=== PATIENT | male | born 1985 | race Caucasian/White ===

== ENCOUNTER 2016-07-31 16:14 | Observation (INO) | payer SELFPAY ==
[~2016-07-31] VITALS: Ht 190.5 cm; Wt 82.0 kg
[2016-07-31 16:16] VITALS: BP 130/79; PULSE 100; RESP 20; TEMP 98; O2SAT 96
[2016-08-01 02:00] VITALS: BP 162/104; PULSE 84; RESP 20; TEMP 98.7; O2SAT 100
[2016-08-01] MEDS ORDERED: SODIUM CHLOR 0.9% 1000 ML INJ 1,000 ML IV SCH (02:19)
[2016-08-01] MEDS ORDERED: KETOROLAC TROMETHAMINE 30 MG/ML (IVP) VIAL IVP ONE (02:30)
[2016-08-01] MEDS ORDERED: SODIUM CHLORIDE 0.9% FLUSH 5 ML FLUSH IVF PRN ×2 (02:30)
[2016-08-01] MEDS ORDERED: ONDANSETRON HCL 4 MG/2 ML VIAL IM ONE (02:30)
--- NOTE | 2016-08-01 02:38 | PD ---
HPI Chief Complaint: Abdominal Pain Time Seen by Provider: 01:55 Travel History International Travel<30 days: No Contact w/Intl Traveler<30days: No Traveled to known affect area: No History of Present Illness HPI The patient is a 31 year old male who presents to the [facility] emergency department with a history of reportedly "not feeling right over the last 2 months, that is also worsened over the last few days." The patient reports that he's had intermittent left-sided abdominal pain and blood in his stool 3-4 times over the last few months. He reports that recently he is also had a tingling sensation in his head with this feeling of lightheadedness. The patient reports that today while in the bathroom he felt lightheaded and nearly passed out. The patient denies drinking any significant alcohol. He reports that he had been drinking approximately a 12 pack per day of that until 3-1/2-4 months ago. However now, when he drinks a half a beer to a beer he reportedly feels drunk immediately. He reports that he has a sensation that he is "losing track of time." He denies having a primary care physician. He reports that the last time he was seen by a physician was 10 years ago. The patient reports that he smokes one and a half packs of cigarettes per day. He denies using any drugs. The patient reports that he has been moving his bowels regularly. He denies having any rectal pain or swelling. The patient denies any recent fevers , cough, congestion, neck pain, chest pain, shortness of breath,, vomiting, diarrhea, urinary symptoms, or other neurologic symptoms. REPLACED BY [facility] Past Medical History Narrative Medical The patient's past medical history is significant for none. Past Surgical History Narrative Surgical The patient's past surgical history is significant for none. Social History Alcohol Use: Yes (occasional) Tobacco Use: Yes (1-1/2 packs per day) Substance Use: No Allergies-Medications (Allergen,Severity, Reaction): Coded Allergies: No Known Allergies (Unverified , 07/31/16) Reported Meds & Prescriptions Reported Meds & Active Scripts Active No Active Prescriptions or Reported Medications Narrative Medication The patient denies taking any medications. Review of Systems Except as stated in HPI: all other systems reviewed are Neg General / Constitutional: No: Fever Eyes: No: Visual changes HENT: No: Headaches Cardiovascular: Positive: Syncope, No: Chest Pain or Discomfort Respiratory: Positive: Cough, No: Shortness of Breath Gastrointestinal: Positive: Abdominal Pain, Hematochezia, No: Nausea, Vomiting , Diarrhea, Changes in Bowel Habits, Indigestion, Loss of Appetite Genitourinary: No: Dysuria Musculoskeletal: No: Pain Skin: No Rash Neurologic: No: Weakness Psychiatric: No: Depression Endocrine: No: Polydipsia Hematologic/Lymphatic: No: Easy Bruising Physical Exam Narrative General: The patient is a well-developed well-nourished male, slightly anxious appearing on examination, however in no acute distress. Head and Neck exam: Head is normocephalic atraumatic. Eyes: Pupils are equal round and reactive to light. Nose: Midline septum with pink mucous membranes Mouth: Dentition unremarkable. Moist mucus membranes. Posterior oropharynx is not erythematous. No tonsillar hypertrophy. Uvula midline. Airway patent. Neck: No palpable lymphadenopathy. No nuchal rigidity. No thyromegaly. Cardiovascular: Regular rate and rhythm without murmurs, gallops, or rubs. No pulse deficit to the extremities. Lungs: Clear to auscultation bilaterally. No wheezes, rhonchi, or rales. Abdomen: Soft, with tenderness on palpation in the left lower quadrant of the abdomen. No other tenderness on palpation of the other 3 quadrants. No tenderness on palpation of McBurney's point. Negative Millan's sign. No guarding, rebound, or rigidity. Normal bowel sounds are audible. Extremities: No clubbing, cyanosis, or edema. 2+ pulses in all 4 extremities. No calf tenderness on palpation. Back: No spinous process tenderness to palpation. No costovertebral angle tenderness to palpation. Neurologic Exam: Grossly nonfocal. Skin Exam: No rash noted. Intact skin that is warm and dry. RECTAL EXAM: No masses or tenderness, stool is brown. Stool is Hemoccult negative. Data Data Last Documented VS Vital Signs Date Time Temp Pulse Resp B/P Pulse Ox O2 Delivery O2 Flow Rate FiO2 08/01/16 04:00 97.9 64 18 145/95 100 Room Air Orders C-Reactive Protein (Crp) (08/01/16 02:19) Creatine Kinase (Cpk) (08/01/16 02:19) Ckmb (Isoenzyme) Profile (08/01/16 02:19) Troponin I (08/01/16 02:19) Thyroid Stimulating Hormone (08/01/16 02:19) Complete Blood Count With Diff (08/01/16 02:19) Comprehensive Metabolic Panel (08/01/16 02:19) Lipase (08/01/16 02:19) Lactic Acid (08/01/16 02:19) Ct Abd/Pel W Iv Contrast(Rout) (08/01/16 02:19) Iv Access Insert/Monitor (08/01/16 02:19) Ecg Monitoring (08/01/16 02:19) Oximetry (08/01/16 02:19) Sodium Chlor 0.9% 1000 Ml Inj (Ns 1000 M (08/01/16 02:19) Sodium Chloride 0.9% Flush (Ns Flush) (08/01/16 02:30) Electrocardiogram (08/01/16 02:19) Ondansetron Inj (Zofran Inj) (08/01/16 02:30) Ketorolac Inj (Toradol Inj) (08/01/16 02:30) Prothrombin Time / Inr (Pt) (08/01/16 02:19) Act Partial Throm Time (Ptt) (08/01/16 02:19) Sodium Chloride 0.9% Flush (Ns Flush) (08/01/16 02:30) CKMB (08/01/16 02:15) CKMB% (08/01/16 02:15) Iohexol 350 Inj (Omnipaque 350 Inj) (08/01/16 04:46) Urinalysis - C+S If Indicated (08/01/16 04:46) Admit Order (Ed Use Only) (08/01/16 04:47) Labs Laboratory Tests Test 08/01/16 08/01/16 02:15 03:05 White Blood Count 11.9 TH/MM3 Red Blood Count 5.33 MIL/MM3 Hemoglobin 16.4 GM/DL Hematocrit 47.0 % Mean Corpuscular Volume 88.2 FL Mean Corpuscular Hemoglobin 30.8 PG Mean Corpuscular Hemoglobin 34.9 % Concent Red Cell Distribution Width 12.7 % Platelet Count 222 TH/MM3 Mean Platelet Volume 7.4 FL Neutrophils (%) (Auto) % Lymphocytes (%) (Auto) % Monocytes (%) (Auto) % Eosinophils (%) (Auto) % Basophils (%) (Auto) % Neutrophils # (Auto) TH/MM3 Lymphocytes # (Auto) TH/MM3 Monocytes # (Auto) TH/MM3 Eosinophils # (Auto) TH/MM3 Basophils # (Auto) TH/MM3 CBC Comment AUTO DIFF Differential Total Cells 100 Counted Neutrophils % (Manual) 46 % Lymphocytes % 40 % Monocytes % 8 % Eosinophils % 5 % Neutrophils # (Manual) 5.6 TH/MM3 Metamyelocytes 1 % Differential Comment FINAL DIFF MANUAL Platelet Estimate NORMAL Platelet Morphology Comment NORMAL Red Cell Morphology Comment NORMAL Prothrombin Time 10.7 SEC Prothromb Time International 1.0 RATIO Ratio Activated Partial 27.3 SEC Thromboplast Time Urine Color YELLOW Urine Turbidity CLEAR Urine pH 5.5 Urine Specific [place] 1.018 Urine Protein NEG mg/dL Urine Glucose (UA) NEG mg/dL Urine Ketones NEG mg/dL Urine Occult Blood NEG Urine Nitrite NEG Urine Bilirubin NEG Urine Urobilinogen LESS THAN 2.0 MG/DL Urine Leukocyte Esterase NEG Urine RBC LESS THAN 1 /hpf Urine WBC LESS THAN 1 /hpf Urine Mucus FEW /lpf Microscopic Urinalysis Comment CULT NOT INDICATED Sodium Level 137 MEQ/L Potassium Level 4.2 MEQ/L Chloride Level 102 MEQ/L Carbon Dioxide Level 28.9 MEQ/L Anion Gap 6 MEQ/L Blood Urea Nitrogen 13 MG/DL Creatinine 1.07 MG/DL Estimat Glomerular Filtration 80 ML/MIN Rate Random Glucose 91 MG/DL Calcium Level 9.0 MG/DL Total Bilirubin 0.4 MG/DL Aspartate Amino Transf 100 U/L (AST/SGOT) Alanine Aminotransferase 145 U/L (ALT/SGPT) Alkaline Phosphatase 97 U/L Total Creatine Kinase 105 U/L Creatine Kinase MB 0.8 NG/ML Troponin I LESS THAN 0.02 NG/ML C-Reactive Protein LESS THAN 0.29 MG/DL Total Protein 7.7 GM/DL Albumin 4.0 GM/DL Lipase 515 U/L Folate 11.7 NG/ML Thyroid Stimulating Hormone 2.160 uIU/ML 3rd Gen Lactic Acid Level 1.1 mmol/L MDM Medical Decision Making Medical Screen Exam Complete: Yes Emergency Medical Condition: Yes Medical Record Reviewed: Yes Interpretation(s) Last Impressions Abdomen/Pelvis CT 08/01/16 0219 Signed Impressions: Service Date/Time: Monday, August 01, 2016 04:22 - CONCLUSION: Normal examination. Juan Portillo MD Differential Diagnosis Diverticulitis versus diverticulosis, versus anal fissure, versus hemorrhoid, versus inflammatory bowel disease, versus colitis versus electrolyte abnormality , versus dehydration Narrative Course During the course of the patients emergency department visit, the patients history, examination, and differential diagnosis were reviewed with the patient. The patient had IV access obtained and blood work sent for analysis. The patient is placed on a threat monitoring analyst with oximetry and blood pressure monitoring. An EKG was done. The patient's EKG shows a sinus rhythm heart rate of 64, QRS duration 94 ms, QTC [address] segment elevation is noted. T waves are inverted in V1. A CT scan of the abdomen and pelvis has been ordered. The patient was provided normal saline a 1 L IV fluid bolus, Toradol 30 mg IV, Zofran 4 mg IV. The patients laboratory studies were reviewed and remarkable for a CBC that shows a white count of 11, hemoglobin 16, unremarkable differential. CMP is remarkable for an elevated AST and ALT ALT greater than AST suspicious for a viral hepatitis. Lipase is elevated at 515. The patient's alkaline phosphatase and total bilirubin are within normal limits, therefore I do not suspect an obstructive cause of pancreatitis. The patient does report a previous history of heavy alcohol intake, this certainly could be the cause of the patient's pancreatitis. PT PTT are unremarkable, urinalysis is unremarkable. Radiology studies were reviewed and remarkable for a CT scan of the abdomen and pelvis that shows no acute abnormality. The patient will be admitted to the hospital for continued evaluation and treatment of pancreatitis. The patients results were discussed with the patient, including the plan of care. I explained that further testing and/ or monitoring is indicated based on the patients history, examination, and/ or laboratory findings. Therefore, I recommended admission for additional evaluation. The patient expressed understanding and was agreeable with this plan. The patient was admitted to the hospital in stable condition and [facility] Point of Care Internal Pos. & Neg. Controls: Passed Fecal Specimen Occult Blood: Negative Physician Communication Physician Communication The patient's case was discussed with Dr. Vázquez who did agree to admit the patient for further evaluation and treatment at this time. Diagnosis Primary Impression: Abdominal pain Qualified Code: R10.12 - Left upper quadrant pain Additional Impression: Pancreatitis Qualified Code: K85.20 - Alcohol-induced acute pancreatitis, unspecified complication status Admitting Information Admitting Physician Requests: Observation Scripts No Active Prescriptions or Reported Meds Brittny Chappell MD Aug 01, 2016 02:38
[2016-08-01 02:39] LABS: APTT (PATIENT) 27.3 SEC (24.3-30.1); HEMO FLAGS AUTO DIFF; MEAN CELL VOLUME 88.2 FL (80.0-100.0); MEAN CORPUSCULAR HEMOGLOBIN 30.8 PG (27.0-34.0); MEAN CORPUSCULAR HGB CONC 34.9 % (32.0-36.0); PLATELET COUNT 222 TH/MM3 (150-450); PROTHROMBIN TIME - PATIENT 10.7 SEC (9.8-11.6); RED BLOOD COUNT 5.33 MIL/MM3 (4.50-5.90); RED CELL DISTRIBUTION WIDTH 12.7 % (11.6-17.2); WHITE BLOOD COUNT 11.9 TH/MM3 (4.0-11.0)
[2016-08-01 02:47] LABS: ALT (GPT) 145 U/L (12-78); ANION GAP 6 MEQ/L (5-15); AST (GOT) 100 U/L (15-37); BICARBONATE 28.9 MEQ/L (21.0-32.0); BLOOD UREA NITROGEN 13 MG/DL (7-18); CHLORIDE 102 MEQ/L (98-107); GLOMERULAR FILTRATION RATE 80 ML/MIN (>89); POTASSIUM 4.2 MEQ/L (3.5-5.1); SODIUM (NA) 137 MEQ/L (136-145)
[2016-08-01 02:57] LABS: ALKALINE PHOSPHATASE 97 U/L (45-117); CREATINE KINASE 105 U/L (39-308); TOTAL BILIRUBIN ADULT 0.4 MG/DL (0.2-1.0)
[2016-08-01 03:00] VITALS: BP 136/89; PULSE 84; RESP 20; O2SAT 100
[2016-08-01 03:10] LABS: CKMB 0.8 NG/ML (0.5-3.6)
[2016-08-01 03:24] LABS: EOSINOPHILS 5 % (0-4); METAMYELOCYTES 1 % (0-1); NEUTROPHIL # MANUAL DIFF 5.6 TH/MM3 (1.8-7.7); PLATELET ESTIMATE SMEAR NORMAL (NORMAL); PLATELET MORPHOLOGY NORMAL (NORMAL); POLYS (SEG NEUTROPHILS) 46 % (16-70); WBC DIFF SAMPLE 100
[2016-08-01 03:25] LABS: SCAN/DIFF FINAL DIFF MANUAL
[2016-08-01 04:00] VITALS: BP 145/95; PULSE 64; RESP 18; TEMP 97.9; O2SAT 100
[2016-08-01] MEDS ORDERED: IOHEXOL 350 MG/ML 10 ML VIAL (for RAD DIAG) IV ONE (04:46)
[2016-08-01 05:29] LABS: BLOOD, URINE NEG (NEG); COMMENT (UR) CULT NOT INDICATED; CULTURE IF INDICATED CULT NOT INDICATED; GLUCOSE,URINE NEG (NEG); KETONE, URINE NEG (NEG); MUCUS URINE FEW /lpf (OCC); NITRITE,URINE NEG (NEG); PH, URINE 5.5 (5.0-8.5); URINE COLOR YELLOW (YELLW/STRAW)
--- NOTE | 2016-08-01 05:36 | RADRPT ---
EXAM DATE/TIME: 08/01/2016 04:22 [place] COMPARISON: No previous studies available for comparison. INDICATIONS : Left sided abdomen pain for 6 weeks. IV CONTRAST: 97 cc Omnipaque 350 (iohexol) IV ORAL CONTRAST: No oral contrast ingested. RADIATION DOSE: 5.98 CTDIvol (mGy) MEDICAL HISTORY : None SURGICAL HISTORY : None. ENCOUNTER: Initial ACUITY: 2 months PAIN SCALE: 4/10 LOCATION: Left abdomen TECHNIQUE: Volumetric scanning of the abdomen and pelvis was performed. Using automated exposure control and ad justment of the mA and/or kV according to patient size, radiation dose was kept as low as reasonably achievable to obtain optimal diagnostic quality images. FINDINGS: LOWER LUNGS: The visualized lower lungs are clear. LIVER: Homogeneous density without lesion. There is no dilation of the biliary tree. No calcified gallston es. SPLEEN: Normal size without lesion. PANCREAS: Within normal limits. KIDNEYS: Normal in size and shape. There is no mass, stone or hydronephrosis. ADRENAL GLANDS: Within normal limits. VASCULAR: There is no aortic aneurysm. BOWEL/MESENTERY: The stomach, small bowel, and colon demonstrate no acute abnormality. There is no free intraperitone al air or fluid. ABDOMINAL WALL: Within normal limits. RETROPERITONEUM: There is no lymphadenopathy. BLADDER: No wall thickening or mass. REPRODUCTIVE: Within normal limits. INGUINAL: There is no lymphadenopathy or hernia. MUSCULOSKELETAL: Within normal limits for patient age. CONCLUSION: Normal examination. Juan Portillo MD on August 01, 2016 at 5:34 Board Certified Radiologist. This report was verified electronically.
[2016-08-01] MEDS ORDERED: LORazepam 1 MG TAB PO PRN (06:30)
[2016-08-01] MEDS ORDERED: ONDANSETRON HCL 4 MG/2 ML VIAL IVP PRN (06:30)
[2016-08-01] MEDS ORDERED: NALOXONE HCL 0.4 MG/ML AMP IV PRN (06:30)
[2016-08-01] MEDS ORDERED: FLUMAZENIL 0.5 MG/5 ML VIAL IV PUSH PRN (06:30)
[2016-08-01] MEDS ORDERED: LORazepam 2 MG TAB PO PRN (06:30)
[2016-08-01] MEDS ORDERED: SODIUM CHLORIDE 0.9% FLUSH 5 ML FLUSH FLUSH PRN (06:30)
[2016-08-01] MEDS ORDERED: LORazepam 2 MG/ML VIAL IV PUSH PRN ×4 (06:30)
[2016-08-01] MEDS: SODIUM CHLOR 0.9% 1000 ML INJ 1,000 ML IV SCH ×2 (07:20→14:59)
[2016-08-01 07:21] VITALS: BP 129/78; PULSE 68; RESP 15; TEMP 98.3; O2SAT 96
[2016-08-01] MEDS: SODIUM CHLORIDE 0.9% FLUSH 5 ML FLUSH FLUSH SCH ×2 (09:00→20:57)
--- NOTE | 2016-08-01 13:51 | HHI.HP ---
HPI Service [facility] Hospitalists Primary Care Physician No Primary Care Physician Admission Diagnosis Abdominal pain, Pancreatitis, elevated liver enzymes Diagnoses: Chief Complaint: Abdominal pain Travel History International Travel<30 Days: No Contact w/Intl Traveler <30 Da: No Traveled to Known Affected Are: No History of Present Illness 31 years old male with history of remotely drug abuse, alcoholism, history of stomach cancer in his grandfather and uncle, presented to the ED with a complaint of abdominal pain and syncope for about 30 seconds while he was urinating. Patient stated abdominal pain is not new, it's been there for months , he also reported night sweat, and watery diarrhea with bleeding occasionally. Stated the pain is all over but mostly left flank and lower quadrant. No fever or chills no chest pain or short of breath, no dysuria urgency frequency. Patient also reported family history of leukemia in his uncle, and multiple other cancers in the family that he doesn't remember. Patient's was at the bedside. He had an FOBT in ED which was negative. He told me he quit doing drugs and he's been sober for 5 years but he does do alcohol on a daily basis however he cut back about 5 days ago. His telling me that he occasionally become non-articulate with his sentences, and also having problem with his balance In CT of the abdomen was done and it was negative, his lab work showed lipase of 500, patient was admitted for observation iv fluid and pain management Review of Systems Other All 10 systems reviewed and was positive for what is mentioned in history of present illness otherwise negative Past Family Social History Past Medical History Tobacco and alcohol abuse Remotely illicit drug abuse H/O multiple cancers in the family Past Surgical History Not aware of previous surgeries Allergies: Coded Allergies: No Known Allergies (Unverified , 07/31/16) Family History Stomach ulcer and uncle on grand father on his mother's side Leukemia and his uncle Multiple coronary artery disease problem in his father and mother and other family Social History Positive alcohol and tobacco abuse Remotely illicit drug abuse clean for 5 years Physical Exam Vital Signs Vital Signs Date Time Temp Pulse Resp B/P Pulse Ox O2 Delivery O2 Flow Rate FiO2 08/01/16 07:21 98.3 68 15 129/78 96 Room Air 08/01/16 04:00 97.9 64 18 145/95 100 Room Air 08/01/16 03:00 84 20 136/89 100 Room Air 08/01/16 02:00 98.7 84 20 162/104 100 Room Air 07/31/16 16:16 98.0 100 20 130/79 96 Room Air Physical Exam - GENERAL: This is a well-nourished, well-developed patient, in no apparent distress. SKIN: No rashes, warm and dry , multiple tattoo all over the chest and arms HEAD: Atraumatic. Normocephalic. EYES: Pupils equal round and reactive. Extraocular motions intact. No scleral icterus. ENT: Nose without bleeding, or drainage, Airway patent. NECK: Trachea midline. Supple CARDIOVASCULAR: Regular rate and rhythm without murmurs, gallops, or rubs. RESPIRATORY: Fair air entry bilaterally. No wheezes, rales, or rhonchi. GASTROINTESTINAL: Abdomen soft, generalized tenderness to palpation, nondistended. Positive bowel sounds MUSCULOSKELETAL: Extremities without clubbing, cyanosis, or edema. Pedal pulses appreciated NEUROLOGICAL: Awake and alert. Moves all extremity. Normal speech.no focal neurological deficit Laboratory Laboratory Tests Test 08/01/16 08/01/16 02:15 03:05 White Blood Count 11.9 Red Blood Count 5.33 Hemoglobin 16.4 Hematocrit 47.0 Mean Corpuscular Volume 88.2 Mean Corpuscular Hemoglobin 30.8 Mean Corpuscular Hemoglobin 34.9 Concent Red Cell Distribution Width 12.7 Platelet Count 222 Mean Platelet Volume 7.4 Neutrophils (%) (Auto) Lymphocytes (%) (Auto) Monocytes (%) (Auto) Eosinophils (%) (Auto) Basophils (%) (Auto) Neutrophils # (Auto) Lymphocytes # (Auto) Monocytes # (Auto) Eosinophils # (Auto) Basophils # (Auto) CBC Comment AUTO DIFF Differential Total Cells 100 Counted Neutrophils % (Manual) 46 Lymphocytes % 40 Monocytes % 8 Eosinophils % 5 Neutrophils # (Manual) 5.6 Metamyelocytes 1 Differential Comment FINAL DIFF MANUAL Platelet Estimate NORMAL Platelet Morphology Comment NORMAL Red Cell Morphology Comment NORMAL Prothrombin Time 10.7 Prothromb Time International 1.0 Ratio Activated Partial 27.3 Thromboplast Time Urine Color YELLOW Urine Turbidity CLEAR Urine pH 5.5 Urine Specific [place] 1.018 Urine Protein NEG Urine Glucose (UA) NEG Urine Ketones NEG Urine Occult Blood NEG Urine Nitrite NEG Urine Bilirubin NEG Urine Urobilinogen LESS THAN 2.0 Urine Leukocyte Esterase NEG Urine RBC LESS THAN 1 Urine WBC LESS THAN 1 Urine Mucus FEW Microscopic Urinalysis Comment CULT NOT INDICATED Sodium Level 137 Potassium Level 4.2 Chloride Level 102 Carbon Dioxide Level 28.9 Anion Gap 6 Blood Urea Nitrogen 13 Creatinine 1.07 Estimat Glomerular Filtration 80 Rate Random Glucose 91 Calcium Level 9.0 Total Bilirubin 0.4 Aspartate Amino Transf 100 (AST/SGOT) Alanine Aminotransferase 145 (ALT/SGPT) Alkaline Phosphatase 97 Total Creatine Kinase 105 Creatine Kinase MB 0.8 Troponin I LESS THAN 0.02 C-Reactive Protein LESS THAN 0.29 Total Protein 7.7 Albumin 4.0 Lipase 515 Thyroid Stimulating Hormone 2.160 3rd Gen Lactic Acid Level 1.1 Result Diagram: 08/01/1621408/01/16214 Imaging Last Impressions Abdomen/Pelvis CT 08/01/16218 Signed Impressions: Service Date/Time: Monday, August 01, 2016 04:22 - CONCLUSION: Normal examination. Juan Portillo MD Assessment and Plan Assessment and Plan 51 years old male with Abdominal pain with watery diarrhea and hematochezia Increase lipase suspect chronic versus acute pancreatitis Alcohol abuse Tobacco abuse Remote illicit drug abuse Strong family history of stomach and GI cancer along with leukemia DVT prophylaxis with SCD and ambulation, will hold on chemical due to history of hematochezia Plan: Admit for observation Iv fluid, nothing by mouth Morphine sulfate for pain medication Consult GI for history of watery diarrhea and hematochezia rule out UC versus Crohn's, also considering history of significant GI cancer in first and second- degree generation Extensive consolidation about smoking cessation, and alcohol abstinence Apply CIWA protocol Folic acid and thiamine Discussed Condition With Patient and his Abdulkadir Soriano MD Aug 01, 2016 13:51
[2016-08-01 14:00] VITALS: BP 131/84; PULSE 72; RESP 19; O2SAT 97
[2016-08-01] MEDS: HYDROmorphone HCL PF 1 MG/ML VIAL IV PUSH PRN ×2 (15:00→20:23)
[2016-08-01] MEDS: THIAMINE HCL 100 MG TAB PO SCH (15:34)
[2016-08-01 21:33] VITALS: BP 140/77; PULSE 70; RESP 21; TEMP 98.9; O2SAT 99
[2016-08-02] MEDS: HYDROmorphone HCL PF 1 MG/ML VIAL IV PUSH PRN ×5 (00:05→23:25)
[2016-08-02] MEDS: SODIUM CHLOR 0.9% 1000 ML INJ 1,000 ML IV SCH ×3 (03:19→17:22)
[2016-08-02 05:29] LABS: AUTOMATED NEUTROPHIL # 3.5 TH/MM3 (1.8-7.7); BASOPHIL % 0.4 % (0.0-2.0); EOSINOPHIL # 0.4 TH/MM3 (0-0.4); EOSINOPHIL % 5.2 % (0.0-4.0); HEMATOCRIT 42.2 % (39.0-51.0); HEMO FLAGS DIFF FINAL; LYMPH % 40.1 % (9.0-44.0); LYMPHOCYTE # 3.2 TH/MM3 (1.0-4.8); MEAN CELL VOLUME 88.6 FL (80.0-100.0); MEAN CORPUSCULAR HEMOGLOBIN 31.4 PG (27.0-34.0); MEAN CORPUSCULAR HGB CONC 35.4 % (32.0-36.0); MONO % 10.1 % (0.0-8.0); NEUT % 44.2 % (16.0-70.0); PLATELET COUNT 188 TH/MM3 (150-450); RED BLOOD COUNT 4.76 MIL/MM3 (4.50-5.90); RED CELL DISTRIBUTION WIDTH 12.7 % (11.6-17.2); WHITE BLOOD COUNT 7.9 TH/MM3 (4.0-11.0)
[2016-08-02 05:53] LABS: ALKALINE PHOSPHATASE 79 U/L (45-117); ALT (GPT) 160 U/L (12-78); ANION GAP 6 MEQ/L (5-15); AST (GOT) 118 U/L (15-37); BICARBONATE 27.9 MEQ/L (21.0-32.0); BLOOD UREA NITROGEN 8 MG/DL (7-18); CHLORIDE 106 MEQ/L (98-107); GLOMERULAR FILTRATION RATE 92 ML/MIN (>89); POTASSIUM 4.1 MEQ/L (3.5-5.1); SODIUM (NA) 140 MEQ/L (136-145); TOTAL BILIRUBIN ADULT 0.7 MG/DL (0.2-1.0)
[2016-08-02 06:16] VITALS: BP 122/85; PULSE 68; RESP 18; TEMP 98.8; O2SAT 98
[2016-08-02 08:15] VITALS: BP 139/89; PULSE 72; RESP 20; TEMP 97.7; O2SAT 98
[2016-08-02] MEDS: SODIUM CHLORIDE 0.9% FLUSH 5 ML FLUSH FLUSH SCH ×2 (08:22→21:00)
[2016-08-02] MEDS: THIAMINE HCL 100 MG TAB PO SCH (08:31)
--- NOTE | 2016-08-02 12:17 | PD.CONS ---
HPI History of Present Illness This is a 31 year old who came to the ER after "passing out" on Sunday. He reports that he has had constant stomach aches and intermittent bloody stools for several months. He reports that on Sunday, he was urinating, when he lost consciousness for about 30 seconds and his insisted that he come to the ER for further evaluation. He he reports that he has frequent stomach aches in his LUQ that radiates to his epigastric area. This is a throbbing pain that does improve if he lies down, but returns the minute he sits up or moves around. Sometimes this is aggravated by heavy meals, but other times food does not seem to both him. He reports he has associated bloating and occasional nausea, but "nothing major" and denies any vomiting. He has 3-4 loose stools per day and sometimes has red blood and other times has dark stool. He reports that his stool has been watery and dark for the past several weeks. He denies any hematemesis, no weight loss. He does note that he has night sweats almost every night. He rarely takes Ibuprofen. He used to drink heavily, but has recently cut back. He last had ETOH on Sunday night and drank 2 beers at that time. He denies any history of hepatitis or liver disease. (April Cee) PFSH Past Medical History Chronic abdominal pain and loose stool, frequent bloody stool Past Surgical History None (April Cee) Coded Allergies: No Known Allergies (Unverified , 07/31/16) Medications Allergies Coded Allergies Type Severity Reaction Last Updated Verified No Known Allergies 07/31/16 No Active Scripts Medications Dose Route/Sig Days Date Category No Active Prescriptions or Reported Medications Rx Family History Stomach cancer in maternal uncle and maternal grandfather. Leukemia in maternal uncle. Multiple coronary artery disease problem in his father and mother Social History 5-6 beers a week x 5-6 months, heavier prior to that. Smokes 1ppd Denies any drug use, none for 5 years. 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, never shared needles Tattoo's from [facility], tattoo parlors (April Cee) Review of Systems Constitutional: COMPLAINS OF: Diaphoretic episodes, Fatigue, Night Sweats, DENIES: Fever, Weight gain, Weight loss Ears, nose, mouth, throat: DENIES: Hearing loss Respiratory: DENIES: Cough Gastrointestinal: COMPLAINS OF: Abdominal pain, Black stools, Bloody stools, Diarrhea, Nausea, DENIES: Vomiting Musculoskeletal: DENIES: Back pain Integumentary: COMPLAINS OF: Abnormal pigmentation, Rash (recently blotchy red rash, not now), DENIES: Jaundice Hematologic/lymphatic: DENIES: Bruising Neurologic: DENIES: Headache Psychiatric: DENIES: Confusion (April Cee) GI Exam Vitals I&O Vital Signs Date Time Temp Pulse Resp B/P Pulse Ox O2 Delivery O2 Flow Rate FiO2 08/02/16 10:08 18 08/02/16 08:15 97.7 72 20 139/89 98 08/02/16 06:16 98.8 68 18 122/85 98 08/01/16 21:33 98.9 70 21 140/77 99 08/01/16 14:00 72 19 131/84 97 Room Air Imaging Last Impressions Abdomen/Pelvis CT 08/01/16 0219 Signed Impressions: Service Date/Time: Monday, August 01, 2016 04:22 - CONCLUSION: Normal examination. Juan Portillo MD Laboratory Test 08/02/16 05:02 White Blood Count 7.9 TH/MM3 Red Blood Count 4.76 MIL/MM3 Hemoglobin 14.9 GM/DL Hematocrit 42.2 % Mean Corpuscular Volume 88.6 FL Mean Corpuscular Hemoglobin 31.4 PG Mean Corpuscular Hemoglobin 35.4 % Concent Red Cell Distribution Width 12.7 % Platelet Count 188 TH/MM3 Mean Platelet Volume 7.6 FL Neutrophils (%) (Auto) 44.2 % Lymphocytes (%) (Auto) 40.1 % Monocytes (%) (Auto) 10.1 % Eosinophils (%) (Auto) 5.2 % Basophils (%) (Auto) 0.4 % Neutrophils # (Auto) 3.5 TH/MM3 Lymphocytes # (Auto) 3.2 TH/MM3 Monocytes # (Auto) 0.8 TH/MM3 Eosinophils # (Auto) 0.4 TH/MM3 Basophils # (Auto) 0.0 TH/MM3 CBC Comment DIFF FINAL Differential Comment Sodium Level 140 MEQ/L Potassium Level 4.1 MEQ/L Chloride Level 106 MEQ/L Carbon Dioxide Level 27.9 MEQ/L Anion Gap 6 MEQ/L Blood Urea Nitrogen 8 MG/DL Creatinine 0.95 MG/DL Estimat Glomerular Filtration 92 ML/MIN Rate Random Glucose 89 MG/DL Calcium Level 8.7 MG/DL Total Bilirubin 0.7 MG/DL Aspartate Amino Transf 118 U/L (AST/SGOT) Alanine Aminotransferase 160 U/L (ALT/SGPT) Alkaline Phosphatase 79 U/L Total Protein 6.4 GM/DL Albumin 3.3 GM/DL Lipase 260 U/L Physical Examination HEENT: Normocephalic; atraumatic; no jaundice. CHEST: CTA CARDIAC: RRR. ABDOMEN: Soft, nondistended, mild diffuse tenderness; no hepatosplenomegaly; bowel sounds are present in all four quadrants. EXTREMITIES: No clubbing, cyanosis, or edema. SKIN: Normal; no rash; no jaundice. PRACTICAL NURSE CLINICAL COORDINATOR: No focal deficits; alert and oriented times three. (April Cee) Assessment and Plan Plan ASSESSMENT: - Abdominal pain. Abdomen/Pelvis CT (08/01/16)-----> Normal examination. Pt has had frequent LUQ/Epigastric dull ache for several months, sometimes related to food, sometimes to movement with rare nausea and frequent diarrhea - sometimes bloody or dark stool. No hx of egd/colonoscopy. - Bloody diarrhea. HH stable. 14.9/42.2. No hx of colonoscopy. - Elevated LFTs. Pt with T. Bili 0.7, AST 118, ALT 160, Alk phosph 79. CT unremarkable. No known hx of hepatitis, although he has had several [facility] tattoos. He does report that he has had night sweats and has a hx of IVDA, although states he has never shared needles. Denies Tylenol use. States he drinks 5-6 beers per day, x 5-6 months, did drink more prior to that. - Elevated lipase, undetermined significance. No evidence of pancreatitis on contrasted CT scan and it has since normalized. - Night sweats. Pt has been in [facility]. Defer to primary PLAN: - Plan for egd/colonoscopy in am - Obtain consents - Clear liquids - NPO after MN - Golytely prep - PPI - Await hepatitis panel - AFP level - KATHIE, AMA, ASMA - Ceruloplasmin, ALpha 1 Antitrypsin - Ferritin, Iron saturation - Acetaminophen level - Consider HIV testing, will defer to primary - Supportive care - Further recommendations to follow based on results of above - Pt seen and examined by Dr. Fitzpatrick and myself and this note is written on his behalf (April Cee) Physician Comments Seen and examined with KYUNG, egd/colonoscopy planned for tomorrow. CT -ve for source of symptoms. Will follow. Thank you (Andreea Fitzpatrick MD) April Cee Aug 02, 2016 12:17 Andreea Fitzpatrick MD Aug 02, 2016 13:48
--- NOTE | 2016-08-02 13:08 | RADRPT ---
EXAM DATE/TIME: 08/02/2016 11:41 [facility] COMPARISON: No previous studies available for comparison. INDICATIONS : Syncope. MEDICAL HISTORY : Syncope. Abdominal pain. Blood in stool. SURGICAL HISTORY : None. ENCOUNTER: Initial ACUITY: 1 day PAIN SCORE: 0/10 LOCATION: Bilateral neck PEAK SYSTOLIC VELOCITIES (cm/sec): ICA/CCA RATIO: Right: 0.8 Left: 0.8 ICA: Right: 74 Left: 70 CCA: Right: 109 Left: 92 ECA: Right: 101 Left: 86 VERTEBRAL: Right: 40 antegrade Left: 55 antegrade Elevated flow velocities and ICA/CCA ratios have been found to correlate with increased degrees of vessel stenosis, calculated as percentage of diameter relative to a normal segment of distal ICA/CCA FINDINGS: RIGHT CAROTID: There is no evidence for a hemodynamically significant carotid stenosis. Minimal int imal hyperplasia is present with scattered calcific plaque. LEFT CAROTID: There is no evidence for a hemodynamically significant carotid stenosis. Minimal inti mal hyperplasia is present with scattered calcific plaque. VERTEBRAL ARTERIES: Flow is antegrade in both vertebral arteries. MISCELLANEOUS: There are no ancillary masses or adenopathy. CONCLUSION: Negative examination for a hemodynamically significant carotid stenosis. Akin Cordoba MD FACR Board Certified Radiologist. This report was verified electronically.
[2016-08-02 14:49] VITALS: BP 131/77; PULSE 73; RESP 14; TEMP 98.1
[2016-08-02 14:52] LABS: FERRITIN 201 NG/ML (26-388); TRANSFERRIN IRON PROFILE 287 MG/DL (200-360)
--- NOTE | 2016-08-02 14:57 | HHI.PR ---
Subjective Remarks still having LLQ pain no fever , d/w GI Objective Vitals Vital Signs Date Time Temp Pulse Resp B/P Pulse Ox O2 Delivery O2 Flow Rate FiO2 08/02/16 14:49 98.1 73 14 131/77 08/02/16 10:08 18 08/02/16 08:15 97.7 72 20 139/89 98 08/02/16 06:16 98.8 68 18 122/85 98 08/01/16 21:33 98.9 70 21 140/77 99 Result Diagram: 08/02/16 0502 08/02/16 0502 Objective Remarks - GENERAL: This is a well-nourished, well-developed patient, in no apparent distress. SKIN: No rashes, warm and dry , multiple tattoo all over the chest and arms HEAD: Atraumatic. Normocephalic. EYES: Pupils equal round and reactive. Extraocular motions intact. No scleral icterus. ENT: Nose without bleeding, or drainage, Airway patent. NECK: Trachea midline. Supple CARDIOVASCULAR: Regular rate and rhythm without murmurs, gallops, or rubs. RESPIRATORY: Fair air entry bilaterally. No wheezes, rales, or rhonchi. GASTROINTESTINAL: Abdomen soft, nt, nondistended. Positive bowel sounds MUSCULOSKELETAL: Extremities without clubbing, cyanosis, or edema. Pedal pulses appreciated NEUROLOGICAL: Awake and alert. Moves all extremity. Normal speech.no focal neurological deficit A/P Assessment and Plan 51 years old male with Abdominal pain with watery diarrhea and hematochezia Increase lipase suspect chronic versus acute pancreatitis night sweat r/o underlying TB (PT HAS BEEN IN RESIDENTIAL ) Alcohol abuse Tobacco abuse Remote illicit drug abuse Strong family history of stomach and GI cancer along with leukemia DVT prophylaxis with SCD and ambulation, will hold on chemical due to history of hematochezia Plan: check TB pcr , and HIV appreciate GI consult , EGD/colonoscopy in am , ff rest of the work up for elevated LFT , including hepatitis panel, AMA, AFP, ceruloplasmin, tone antitrypsin level, ASMA Iv fluid, nothing by mouth Morphine sulfate for pain medication Extensive consolidation about smoking cessation, and alcohol abstinence Apply [facility] protocol Folic acid and thiamine Abdulkadir Soriano MD Aug 02, 2016 14:57
[2016-08-02 15:04] LABS: ACETAMINOPHEN LESS THAN 2.0 MCG/ML (10.0-30.0)
[2016-08-02] MEDS ORDERED: PEG (High)/E-LYTE SOLN 4000 ML BTL PO ONE (16:00)
--- NOTE | 2016-08-02 16:50 | RADRPT ---
EXAM DATE/TIME: 08/02/2016 16:08 [facility] COMPARISON: No previous studies available for comparison. INDICATIONS : Intermittant night sweats. MEDICAL HISTORY : None. SURGICAL HISTORY : None. ENCOUNTER: Initial ACUITY: 4 - 6 months PAIN SCORE: 0/10 LOCATION: Bilateral chest FINDINGS: PA and lateral views of the chest demonstrate the lungs to be symmetrically aerated without evidence of mass, infiltrate or effusion. The cardiomediastinal contours are unremarkable. Osseous structure s are intact. CONCLUSION: No acute disease. Akin Cordoba MD FACR on August 02, 2016 at 16:48 Board Certified Radiologist. This report was verified electronically.
--- NOTE | 2016-08-02 17:52 | EC ---
Study Study Date:08/02/2016 STUDY CONCLUSIONS SUMMARY - Left ventricle: The cavity size was normal. Wall thickness was normal. Systolic function was normal. The estimated ejection fraction was in the range of 55% to 60%. Wall motion was normal; there were no regional wall motion abnormalities. - Mitral valve: Mild regurgitation. - Tricuspid valve: Mild regurgitation. - Pulmonary arteries: PA peak pressure: 31mm Hg (S). If LV function is below 40, please consider prescribing an ACEI or ARB or document rationale for non-use. PROCEDURE DATA STUDY STATUS: Elective. Procedure: Transthoracic echocardiography. Image quality was good. Scanning was performed from the parasternal, apical, and subcostal acoustic windows. Study completion: The patient tolerated the procedure well. Transthoracic echocardiography. M-mode, complete 2D, complete spectral Doppler, and color Doppler. Patient status: Inpatient. CARDIAC ANATOMY LEFT VENTRICLE: The cavity size was normal. Wall thickness was normal. Systolic function was normal. The estimated ejection fraction was in the range of 55% to 60%. Wall motion was normal; there were no regional wall motion abnormalities. AORTIC VALVE: Trileaflet; normal thickness leaflets. Doppler: Transvalvular velocity was within the normal range. There was no stenosis. No regurgitation. AORTA: Aortic root: The aortic root was normal in size. MITRAL VALVE: Structurally normal valve. Doppler: Transvalvular velocity was within the normal range. There was no evidence for stenosis. Mild regurgitation. Peak gradient: 3mm Hg (D). LEFT ATRIUM: The atrium was normal in size. RIGHT VENTRICLE: The cavity size was normal. Wall thickness was normal. PULMONIC VALVE: Doppler: Transvalvular velocity was within the normal range. There was no evidence for stenosis. No regurgitation. TRICUSPID VALVE: Structurally normal valve. Doppler: Transvalvular velocity was within the normal range. Mild regurgitation. PULMONARY ARTERY: The main pulmonary artery was normal-sized. Systolic pressure was within the normal range. RIGHT ATRIUM: The atrium was normal in size. PERICARDIUM: There was no pericardial effusion. SYSTEMIC VEINS: Inferior vena cava: The vessel was normal in size. BASIC MEASUREMENTS ADULT Normal Left ventricle LV internal dimension, ED, chordal level, *53.3 mm 43-52 PLAX LV internal dimension, ES, chordal level, *39 mm 23-38 PLAX Fractional shortening, chordal level, PLAX *27 % >29 LV posterior wall thickness, ED 6.83 mm IVS/LVPW ratio, ED 1.27 <1.3 Ventricular septum Septal thickness, ED 8.66 mm Aortic valve Leaflet separation 23 mm 15-26 Left atrium Anterior-posterior dimension 33 mm BASIC MEASUREMENTS ADULT Normal Aortic valve Leaflet separation 23 mm 15-26 Aorta Root diameter, ED 32 mm 20-37 DOPPLER MEASUREMENTS ADULT Normal Main pulmonary artery Pressure, S *31 mm Hg =30 Mitral valve Peak E-wave velocity 86.9 cm/s Peak A-wave velocity 53.3 cm/s Peak gradient, D 3 mm Hg Peak E/A ratio 1.6 Maximal regurgitant velocity 396 cm/s Tricuspid valve Regurgitant peak velocity 255 cm/s Peak RV-RA gradient, S 26 mm Hg Maximal regurgitant velocity 255 cm/s Systemic veins Estimated CVP 5 mm Hg Right ventricle RV pressure, S *31 mm Hg <30 LEGEND: Mean values are shown as u=mean value. Asterisk (*) spann values outside specified normal range. Prepared and signed by Bubba Schulte [id number]
--- NOTE | 2016-08-02 18:06 | MG ---
cc: SOHAM RAMIREZ Lab No: Date: 08/02/2016 Age: Sex: M Race: EEG NUMBER [id number] Not feeling well for two months, abdominal pain. MEDICATIONS 1. Thiamine. 2. Dilaudid. DESCRIPTION A 10 Hz 40 microvolt symmetric posterior and diffuse rhythm is seen. The recording overall is synchronous and symmetric and appears quite normal. Photic stimulation was performed without any posterior driving. No hemisphere asymmetries are seen. No epileptiform or seizure activity is noted. Hyperventilation was performed with fair effort without change in the background. IMPRESSION A normal awake EEG. No evidence for focal or diffuse abnormality. MD CONNIE Pro/OMID /5:35 PM /5:58 PM
[2016-08-02 20:08] VITALS: BP 135/94; PULSE 63; RESP 21; TEMP 98.8; O2SAT 98
--- NOTE | 2016-08-02 23:29 | EKG ---
Date Performed: 08/01/2016 Time Performed: 02:31:00 PTAGE: 31 years EKG: Sinus rhythm NO PREVIOUS TRACING DOCTOR: Jack Thrasher Interpretating Date/Time 08/02/2016 23:27:16
[2016-08-03] MEDS: HYDROmorphone HCL PF 1 MG/ML VIAL IV PUSH PRN ×2 (05:07→11:06)
[2016-08-03 07:06] LABS: AUTOMATED NEUTROPHIL # 3.4 TH/MM3 (1.8-7.7); BASOPHIL % 0.6 % (0.0-2.0); EOSINOPHIL # 0.3 TH/MM3 (0-0.4); EOSINOPHIL % 4.6 % (0.0-4.0); HEMO FLAGS DIFF FINAL; LYMPH % 38.5 % (9.0-44.0); LYMPHOCYTE # 2.8 TH/MM3 (1.0-4.8); MEAN CORPUSCULAR HEMOGLOBIN 30.7 PG (27.0-34.0); MEAN CORPUSCULAR HGB CONC 34.5 % (32.0-36.0); NEUT % 47.3 % (16.0-70.0); PLATELET COUNT 196 TH/MM3 (150-450); RED BLOOD COUNT 4.95 MIL/MM3 (4.50-5.90); RED CELL DISTRIBUTION WIDTH 12.9 % (11.6-17.2); WHITE BLOOD COUNT 7.2 TH/MM3 (4.0-11.0)
[2016-08-03 07:31] VITALS: BP 118/76; PULSE 60; RESP 14; TEMP 96.7
[2016-08-03 07:40] LABS: ALT (GPT) 242 U/L (12-78); ANION GAP 8 MEQ/L (5-15); AST (GOT) 168 U/L (15-37); BICARBONATE 26.7 MEQ/L (21.0-32.0); BLOOD UREA NITROGEN 7 MG/DL (7-18); CHLORIDE 104 MEQ/L (98-107); GLOMERULAR FILTRATION RATE 100 ML/MIN (>89); POTASSIUM 3.8 MEQ/L (3.5-5.1); SODIUM (NA) 139 MEQ/L (136-145)
[2016-08-03 07:42] LABS: ALKALINE PHOSPHATASE 82 U/L (45-117); TOTAL BILIRUBIN ADULT 0.6 MG/DL (0.2-1.0)
[2016-08-03 08:57] VITALS: BP 118/78; PULSE 60; RESP 16; TEMP 96.7; O2SAT 98
[2016-08-03] MEDS: SODIUM CHLORIDE 0.9% FLUSH 5 ML FLUSH FLUSH SCH (09:00)
--- NOTE | 2016-08-03 09:39 | HHI.PR ---
Subjective Remarks Follow-up for abdominal pain. Patient seen with at bedside. The patient denies any issues overnight. He is still having occasional cramping in his left abdomen. He denies any nausea, vomiting, diarrhea, constipation, fever, chills, shortness breath. Going to GI lab today. Objective Vitals Vital Signs Date Time Temp Pulse Resp B/P Pulse Ox O2 Delivery O2 Flow Rate FiO2 08/03/16 08:57 96.7 60 16 118/78 98 08/03/16 07:31 96.7 60 14 118/76 08/02/16 20:08 98.8 63 21 135/94 98 08/02/16 16:02 18 08/02/16 14:49 98.1 73 14 131/77 I/O 08/02/16 08/02/16 08/02/16 08/03/16 08/03/16 08/03/16 07:00 15:00 23:00 07:00 15:00 23:00 Intake Total 1460 ml Balance 1460 ml Intake Oral 960 ml IV Total 500 ml # Voids 7 Result Diagram: 08/03/16 0614 08/03/16 0614 Imaging Last Impressions Chest X-Ray 08/02/16 0000 Signed Impressions: Service Date/Time: Tuesday, August 02, 2016 16:08 - CONCLUSION: No acute disease. Akin Cordoba MD FACR Carotid Artery Ultrasound 08/02/16 0000 Signed Impressions: Service Date/Time: Tuesday, August 02, 2016 11:41 - CONCLUSION: Negative examination for a hemodynamically significant carotid stenosis. Akin Cordoba MD Abdomen/Pelvis CT 08/01/16 0219 Signed Impressions: Service Date/Time: Monday, August 01, 2016 04:22 - CONCLUSION: Normal examination. Juan Portillo MD Objective Remarks GENERAL: Well-developed well-nourished. In no acute distress. Appears comfortable. SKIN: Warm and dry. No lesions noted. HEENT: Normocephalic. Pupils equal and round. Mucous membranes pink and moist. CARDIOVASCULAR: Regular rate and rhythm. No murmur appreciated. RESPIRATORY: No accessory muscle use. Clear to auscultation. Breath sounds equal bilaterally. GASTROINTESTINAL: Abdomen soft, nondistended. TTP worse in the LUQ, but also epigastrium and LLQ. Bowel sounds x4. MUSCULOSKELETAL: No obvious deformities. No clubbing or cyanosis. No edema. NEUROLOGICAL: Awake and alert. No focal neurological deficits. Moves upper and lower extremities spontaneously. Normal speech. PSYCHIATRIC: Appropriate mood and affect; insight and judgment normal. A/P Problem List: (1) Abdominal pain ICD Code: R10.9 Status: Acute Assessment and Plan 31-year-old male who presented with abdominal pain and syncope: Abdominal pain: Primarily left upper quadrant. With associated watery diarrhea and hematochezia. History of alcohol and IV drug use. Family history of stomach cancer. Labs reviewed: Lipase initially mildly elevated at 5:15, improved to normal limits, 260. Elevated AST and ALT. Hepatitis C antibody reactive, results discussed with the patient. AFP mildly elevated. Images reviewed: Abdominal and pelvis CT unremarkable. -GI consulted, workup in progress. EGD and colonoscopy. -IVF. Diet per GI. -IV Dilaudid 0.2 mg as needed for pain control. Syncope: Possibly secondary to dehydration secondary to the above. Workup unremarkable to date. Imaging review: Echocardiogram with normal systolic function and EF. EEG normal. Carotid ultrasound with no significant stenosis. -Monitor on telemetry Alcohol abuse -CIWA protocol. Rally pack. -Cessation counseling DVT prophylaxis: SCDs Written by Shun Loyola, acting as scribe for Dr. Herrera on 08/03/16 at 09:39. The documentation accurately reflects the work performed [id number] by me Dr. Herrera on 08/03/16 at 09:39. Discharge Planning Disposition pending GI input. Could possibly be discharged if cleared by gastroenterology. Problem Qualifiers (1) Abdominal pain: Qualified Code: R10.12 - Left upper quadrant pain Shun Loyola Aug 03, 2016 09:39 Dary Herrera MD Aug 03, 2016 16:30
[2016-08-03] MEDS ORDERED: PROPOFOL 200 MG/20 ML AMP IV ONE (09:51)
[2016-08-03] MEDS: THIAMINE HCL 100 MG TAB PO SCH (11:06)
[2016-08-03 11:36] VITALS: BP 118/73; PULSE 73; RESP 18; TEMP 96; O2SAT 100
[2016-08-03] MEDS ORDERED: MIDAZOLAM HCL 2 MG/2 ML VIAL ONE (11:46)
[2016-08-03] MEDS ORDERED: PROT40TA PO (13:41)
[2016-08-03] MEDS: SODIUM CHLOR 0.9% 1000 ML INJ 1,000 ML IV SCH (14:30)
--- NOTE | 2016-08-03 16:13 | HHI.DS ---
Discharge Summary Admission Date Aug 01, 2016 at 04:50 Discharge Date: Aug 03, 2016 Admitting Diagnosis Abdominal pain, Pancreatitis, elevated liver enzymes (1) Abdominal pain ICD Code: R10.9 Diagnosis: Principal (2) Hepatitis C ICD Code: B19.20 Diagnosis: Secondary (3) Syncope ICD Code: R55 Diagnosis: Secondary (4) Gastritis and duodenitis ICD Code: K29.90 Diagnosis: Principal Procedures EGD and colonoscopy 08/03/16 Brief History - From Admission 31 years old male with history of remotely drug abuse, alcoholism, history of stomach cancer in his grandfather and uncle, presented to the ED with a complaint of abdominal pain and syncope for about 30 seconds while he was urinating. Patient stated abdominal pain is not new, it's been there for months , he also reported night sweat, and watery diarrhea with bleeding occasionally. Stated the pain is all over but mostly left flank and lower quadrant. No fever or chills no chest pain or short of breath, no dysuria urgency frequency. Patient also reported family history of leukemia in his uncle, and multiple other cancers in the family that he doesn't remember. Patient's was at the bedside. He had an FOBT in ED which was negative. He told me he quit doing drugs and he's been sober for 5 years but he does do alcohol on a daily basis however he cut back about 5 days ago. His telling me that he occasionally become non-articulate with his sentences, and also having problem with his balance In CT of the abdomen was done and it was negative, his lab work showed lipase of 500, patient was admitted for observation iv fluid and pain management CBC/BMP: 08/03/16 0614 08/03/16 0614 Significant Findings Laboratory Tests Test 08/01/16 08/02/16 08/02/16 08/02/16 02:15 05:02 10:30 14:00 White Blood Count 11.9 TH/MM3 (4.0-11.0) Eosinophils % 5 % (0-4) Urine Mucus FEW /lpf (OCC) Estimat Glomerular Filtration 80 ML/MIN (>89) Rate Aspartate Amino Transf 100 U/L (15-37) 118 U/L (15-37) (AST/SGOT) Alanine Aminotransferase 145 U/L (12-78) 160 U/L (12-78) (ALT/SGPT) Troponin I LESS THAN 0.02 NG/ML (0.02-0.05) Lipase 515 U/L (73-393) Monocytes (%) (Auto) 10.1 % (0.0-8.0) Eosinophils (%) (Auto) 5.2 % (0.0-4.0) Albumin 3.3 GM/DL (3.4-5.0) Hepatitis C Antibody REACTIVE (NEGATIVE) Tumor Marker Alpha Fetoprotein 9.4 NG/ML (0.5-8.0) Acetaminophen Level LESS THAN 2.0 MCG/ML (10.0-30.0) Test 08/03/16 06:14 Monocytes (%) (Auto) 9.0 % (0.0-8.0) Eosinophils (%) (Auto) 4.6 % (0.0-4.0) Aspartate Amino Transf 168 U/L (15-37) (AST/SGOT) Alanine Aminotransferase 242 U/L (12-78) (ALT/SGPT) Imaging Last Impressions Chest X-Ray 08/02/16 0000 Signed Impressions: Service Date/Time: Tuesday, August 02, 2016 16:08 - CONCLUSION: No acute disease. Akin Cordoba MD FACR Carotid Artery Ultrasound 08/02/16 0000 Signed Impressions: Service Date/Time: Tuesday, August 02, 2016 11:41 - CONCLUSION: Negative examination for a hemodynamically significant carotid stenosis. Akin Cordoba MD Abdomen/Pelvis CT 08/01/16 0219 Signed Impressions: Service Date/Time: Monday, August 01, 2016 04:22 - CONCLUSION: Normal examination. Juan Portillo MD PE at Discharge GENERAL: Well-developed well-nourished. In no acute distress. Appears comfortable. SKIN: Warm and dry. No lesions noted. HEENT: Normocephalic. Pupils equal and round. Mucous membranes pink and moist. CARDIOVASCULAR: Regular rate and rhythm. No murmur appreciated. RESPIRATORY: No accessory muscle use. Clear to auscultation. Breath sounds equal bilaterally. GASTROINTESTINAL: Abdomen soft, nondistended. TTP worse in the LUQ, but also epigastrium and LLQ. Bowel sounds x4. MUSCULOSKELETAL: No obvious deformities. No clubbing or cyanosis. No edema. NEUROLOGICAL: Awake and alert. No focal neurological deficits. Moves upper and lower extremities spontaneously. Normal speech. PSYCHIATRIC: Appropriate mood and affect; insight and judgment normal. Pt update on day of discharge EGD showed esophagitis, gastritis, duodenitis. Discussed with gastroenterology , recommended drawing labs for hepatitis C viral load and genotype. Otherwise patient can follow-up with gastroenterology as outpatient. Patient has been ambulating the halls talking on his cell phone since GI procedure today. Hospital Course 31-year-old male who presented with abdominal pain and syncope: Abdominal pain: Primarily left upper quadrant. With associated watery diarrhea and hematochezia. History of alcohol and IV drug use. Family history of stomach cancer. Labs reviewed: Lipase initially mildly elevated at 5:15, improved to normal limits, 260. Elevated AST and ALT. Hepatitis C antibody reactive, results discussed with the patient. AFP mildly elevated. Images reviewed: Abdominal and pelvis CT unremarkable. EGD and colonoscopy showed gastritis, esophagitis, duodenitis. -GI consulted, patient cleared for follow-up as outpatient -Diet as tolerated -Continue PPI -Patient appears comfortable and is ambulating with no difficulties, no further indication for narcotic pain control Syncope: Possibly secondary to dehydration secondary to the above. Workup unremarkable to date. Imaging review: Echocardiogram with normal systolic function and EF. EEG normal. Carotid ultrasound with no significant stenosis. -Outpatient PCP follow-up Alcohol abuse -During admission was covered with CIWA protocol and rally pack. -Cessation counseling Pt Condition on Discharge: Stable Discharge Disposition: Discharge Home Discharge Time: > 30 minutes Discharge Instructions DIET: Follow Instructions for: As Tolerated, No Restrictions Follow up Referrals: Gastroenterology - 2 Weeks with Andreea Fitzpatrick MD PCP Follow-up - 1 Week New Medications: Pantoprazole (Protonix) 40 Mg Tab 40 MG PO DAILY Reflux #30 Ref 0 TAB Additional Information Written by Shun Loyola, acting as scribe for Dr. Herrera on 08/03/16 at 09:39. The documentation accurately reflects the work performed [id number] by me Dr. Herrera on 08/03/16 at 09:39. Shun Loyola Aug 03, 2016 16:13 Dary Herrera MD Aug 03, 2016 16:31
[2016-08-03 16:28] VITALS: BP 130/75; PULSE 67; RESP 16; TEMP 98.6; O2SAT 98
[2016-08-07 03:54] LABS: HCV RNA PCR IU/ML 1910000 IU/mL (()); HCV RNA PCR LOGIU/ML 6.28 (())
[2016-08-07 15:57] LABS: MITOCHONDRIAL ABS LESS THAN 20.0 U (())
== END 2016-08-03 17:21 | disposition home or self-care (01) ==
LOC: NEPC 16:14 → NEDA 08-01 04:50 → NEPFCDU 08-01 17:19
PROVIDERS: ADMIT Hospitalist; ATTEND Hospitalist
DX: K29.90 Gastroduodenitis, unspecified, without bleeding (principal); K20.9 Esophagitis, unspecified; B19.20 Unspecified viral hepatitis C without hepatic coma; R55 Syncope and collapse; K64.4 Residual hemorrhoidal skin tags; K64.8 Other hemorrhoids; K85.20 Alcohol induced acute pancreatitis without necrosis or infection; F10.10 Alcohol abuse, uncomplicated; F17.210 Nicotine dependence, cigarettes, uncomplicated; Z85.00 Personal history of malignant neoplasm of unspecified digestive organ; Z80.6 Family history of leukemia; Z80.0 Family history of malignant neoplasm of digestive organs
CPT/HCPCS: 00740; 43239; 45378; 71020; 74177; 80053; 80074; 80329; 81001; 82103; 82105; 82390; 82550; 82552; 82728; 82746; 83520; 83540; 83550; 83605; 83690; 84443; 84484; 85007; 85025; 85027; 85610; 85730; 86038; 86140; 86256; 86703; 87522; 87902; 88305; 88312; 93005; 93306; 93880; 95819; 96361; 96372; 96374; 99285; G0378; J1170; J1885; J2250; J2405; J3010; J7030; Q9967; G0480

== ENCOUNTER 2016-08-07 12:29 | Emergency (ER) | payer SELFPAY ==
[~2016-08-07] VITALS: Ht 190.5 cm; Wt 80.0 kg
[~2016-08-07 12:29] MED LIST: PROT40TA PO
[2016-08-07 12:31] VITALS: BP 134/87; PULSE 76; RESP 12; TEMP 98.4; O2SAT 97
[2016-08-07] MEDS ORDERED: ONDANSETRON ODT 4 MG TAB PO ONE (13:15)
--- NOTE | 2016-08-07 13:28 | PD ---
HPI Chief Complaint: GI Complaint Time Seen by Provider: 13:21 Travel History International Travel<30 days: No Contact w/Intl Traveler<30days: No Traveled to known affect area: No History of Present Illness HPI Patient is a 31-year-old male presenting to the emergency room for evaluation of abdominal pain, nausea, vomiting. Patient was discharged from the hospital 3 days ago, since that time his girlfriend states that he has been vomiting fairly consistently. Patient states he vomits green bile with streaks of blood. He reports compliance with Protonix. He states that he has not had any alcohol since Sunday. Patient reports feeling dizzy and lightheaded , he denies any diarrhea or dark tarry-like stools. He states that he has not had a bowel movement in 2 days. He reports right and left upper quadrant abdominal pain. Girlfriend states that he has been sleeping a lot and has been fatigued. PFSH Past Medical History Blood Disorders: No Cancer: No Cardiovascular Problems: No Endocrine: No Genitourinary: No Hepatitis: Yes (see) Immune Disorder: No Musculoskeletal: No Neurologic: No Psychiatric: No Reproductive: No Respiratory: No Pancreatitis: Yes Past Surgical History Body Medical Devices: SCREW IN RIGHT SIDE FACE Social History Alcohol Use: Yes (occasional) Tobacco Use: Yes (1-1/2 packs per day) Substance Use: No Allergies-Medications (Allergen,Severity, Reaction): Coded Allergies: No Known Allergies (Unverified , 08/07/16) Reported Meds & Prescriptions Reported Meds & Active Scripts Active Protonix (Pantoprazole Sodium) 40 Mg Tab 40 Mg PO DAILY Review of Systems Except as stated in HPI: all other systems reviewed are Neg General / Constitutional: Positive: Other (fatigue), No: Fever, Chills HENT: Positive: Lightheadedness, No: Headaches Cardiovascular: No: Chest Pain or Discomfort Respiratory: No: Shortness of Breath Gastrointestinal: Positive: Nausea, Vomiting, Abdominal Pain, Constipation, Loss of Appetite Genitourinary: No: Dysuria Musculoskeletal: No: Myalgias Neurologic: Positive: Dizziness, No: Syncope, Focal Abnormalities Physical Exam Narrative GENERAL: Thin, well-developed, alert male. Resting comfortably in no acute distress. SKIN: Warm and dry. HEAD: Atraumatic. Normocephalic. EYES: Pupils equal and round. No scleral icterus. No injection or drainage. ENT: No nasal bleeding or discharge. Mucous membranes pink and moist. NECK: Trachea midline. No JVD. CARDIOVASCULAR: Regular rate and rhythm. No murmur appreciated. RESPIRATORY: No accessory muscle use. Clear to auscultation. Breath sounds equal bilaterally. GASTROINTESTINAL: Abdomen soft, tender to palpation in right and left upper quadrants, more so on the right, positive guarding. Positive bowel sounds. MUSCULOSKELETAL: No obvious deformities. No clubbing. No cyanosis. No edema. NEUROLOGICAL: Awake and alert. No obvious cranial nerve deficits. Motor grossly within normal limits. Normal speech. PSYCHIATRIC: Appropriate mood and affect; insight and judgment normal. Data Data Last Documented VS Vital Signs Date Time Temp Pulse Resp B/P Pulse Ox O2 Delivery O2 Flow Rate FiO2 08/07/16 12:31 98.4 76 12 134/87 97 Room Air Orders Complete Blood Count With Diff (08/07/16 13:15) Comprehensive Metabolic Panel (08/07/16 13:15) Lipase (08/07/16 13:15) Lactic Acid (08/07/16 13:15) Ondansetron Odt (Zofran Odt) (08/07/16 13:15) MDM Medical Decision Making Medical Screen Exam Complete: Yes Emergency Medical Condition: Yes Medical Record Reviewed: Yes Interpretation(s) Vital Signs Date Time Temp Pulse Resp B/P Pulse Ox O2 Delivery O2 Flow Rate FiO2 08/07/16 12:31 98.4 76 12 134/87 97 Room Air Differential Diagnosis Gastritis versus esophagitis versus pancreatitis versus nausea with vomiting versus gastroenteritis versus other Narrative Course Patient is a 31-year-old male presenting to emergency for evaluation of nausea vomiting and abdominal pain. Patient was recently admitted for the same. The vomiting has been fairly consistent since he was discharged. During his last admission 3 days ago he had a negative CT of the abdomen and pelvis, negative chest x-ray, negative carotid ultrasound. He was admitted for hepatitis with an elevated lipase at 500 per previous provider's documentation. Patient denies any recent alcohol use, stating the last time he used any alcohol was on Superbow[employer] Sunday. Workup initiated in triage, labs ordered and pending. Patient's vital signs are stable. Care patient will be transferred to provider when bed is available. Jeannie Fonseca Aug 07, 2016 13:27
[2016-08-07 14:34] LABS: AUTOMATED NEUTROPHIL # 5.2 TH/MM3 (1.8-7.7); BASOPHIL % 0.4 % (0.0-2.0); EOSINOPHIL # 0.1 TH/MM3 (0-0.4); EOSINOPHIL % 0.7 % (0.0-4.0); HEMO FLAGS DIFF FINAL; LYMPH % 36.4 % (9.0-44.0); LYMPHOCYTE # 3.4 TH/MM3 (1.0-4.8); MEAN CELL VOLUME 88.8 FL (80.0-100.0); MEAN CORPUSCULAR HEMOGLOBIN 30.7 PG (27.0-34.0); MEAN CORPUSCULAR HGB CONC 34.6 % (32.0-36.0); MONO % 6.4 % (0.0-8.0); NEUT % 56.1 % (16.0-70.0); PLATELET COUNT 314 TH/MM3 (150-450); RED BLOOD COUNT 5.18 MIL/MM3 (4.50-5.90); WHITE BLOOD COUNT 9.3 TH/MM3 (4.0-11.0)
[2016-08-07 14:55] LABS: ALKALINE PHOSPHATASE 89 U/L (45-117); ALT (GPT) 275 U/L (12-78); ANION GAP 7 MEQ/L (5-15); AST (GOT) 157 U/L (15-37); BICARBONATE 28.2 MEQ/L (21.0-32.0); BLOOD UREA NITROGEN 8 MG/DL (7-18); CHLORIDE 104 MEQ/L (98-107); GLOMERULAR FILTRATION RATE 37 ML/MIN (>89); POTASSIUM 4.2 MEQ/L (3.5-5.1); SODIUM (NA) 139 MEQ/L (136-145); TOTAL BILIRUBIN ADULT 0.4 MG/DL (0.2-1.0)
[2016-08-07] MEDS ORDERED: FAMOTIDINE 20 MG/2 ML VIAL IV PUSH SCH (15:15)
[2016-08-07] MEDS ORDERED: SODIUM CHLOR 0.9% 1000 ML INJ 1,000 ML IV ONE ×2 (15:15)
--- NOTE | 2016-08-07 15:29 | PD ---
Physical Exam Date Seen by Provider: Aug 07, 2016 Data Data Last Documented VS Vital Signs Date Time Temp Pulse Resp B/P Pulse Ox O2 Delivery O2 Flow Rate FiO2 08/07/16 16:42 70 16 123/75 99 Room Air 08/07/16 12:31 98.4 Orders Complete Blood Count With Diff (08/07/16 13:15) Comprehensive Metabolic Panel (08/07/16 13:15) Lipase (08/07/16 13:15) Lactic Acid (08/07/16 13:15) Ondansetron Odt (Zofran Odt) (08/07/16 13:15) Sodium Chlor 0.9% 1000 Ml Inj (Ns 1000 M (08/07/16 15:15) Famotidine Inj (Pepcid Inj) (08/07/16 15:15) Sodium Chlor 0.9% 1000 Ml Inj (Ns 1000 M (08/07/16 15:15) Ct Abd/Pel W/O Iv Contrast (08/07/16 15:15) Sucralfate Liq (Carafate Liq) (08/07/16 16:15) Hydromorphone Pf Inj (Dilaudid Pf Inj) (08/07/16 16:45) Labs Laboratory Tests Test 08/07/16 14:15 White Blood Count 9.3 TH/MM3 Red Blood Count 5.18 MIL/MM3 Hemoglobin 15.9 GM/DL Hematocrit 46.0 % Mean Corpuscular Volume 88.8 FL Mean Corpuscular Hemoglobin 30.7 PG Mean Corpuscular Hemoglobin 34.6 % Concent Red Cell Distribution Width 13.0 % Platelet Count 314 TH/MM3 Mean Platelet Volume 8.1 FL Neutrophils (%) (Auto) 56.1 % Lymphocytes (%) (Auto) 36.4 % Monocytes (%) (Auto) 6.4 % Eosinophils (%) (Auto) 0.7 % Basophils (%) (Auto) 0.4 % Neutrophils # (Auto) 5.2 TH/MM3 Lymphocytes # (Auto) 3.4 TH/MM3 Monocytes # (Auto) 0.6 TH/MM3 Eosinophils # (Auto) 0.1 TH/MM3 Basophils # (Auto) 0.0 TH/MM3 CBC Comment DIFF FINAL Differential Comment Sodium Level 139 MEQ/L Potassium Level 4.2 MEQ/L Chloride Level 104 MEQ/L Carbon Dioxide Level 28.2 MEQ/L Anion Gap 7 MEQ/L Blood Urea Nitrogen 8 MG/DL Creatinine 2.09 MG/DL Estimat Glomerular Filtration 37 ML/MIN Rate Random Glucose 91 MG/DL Lactic Acid Level 1.1 mmol/L Calcium Level 9.1 MG/DL Total Bilirubin 0.4 MG/DL Aspartate Amino Transf 157 U/L (AST/SGOT) Alanine Aminotransferase 275 U/L (ALT/SGPT) Alkaline Phosphatase 89 U/L Total Protein 7.7 GM/DL Albumin 3.9 GM/DL Lipase 211 U/L [facility] Medical Record Reviewed: Yes Supervised Visit with ALEXANDRE: Yes Interpretation(s) Vital Signs Date Time Temp Pulse Resp B/P Pulse Ox O2 Delivery O2 Flow Rate FiO2 08/07/16 12:31 98.4 76 12 134/87 97 Room Air Differential Diagnosis Gastritis, duodenitis, esophagitis, intractable nausea and vomiting with electrolyte abnormality , pancreatitis, gastroenteritis Narrative Course I, Dr. Butler, have reviewed the advance practice practitioner's documentation and am in agreement, met with the patient face to face, made the diagnosis, and the medical decision making was done by me. *My assessment and Findings: Patient is a 31-year-old male who returns to emergency room after he was admitted to the hospital on 08/01/16 with diagnosis of acute pancreatitis, with nausea vomiting and abdominal pain. Patient reports that he was discharged from the hospital couple days ago, reports that he is not feeling any better, reports that he had an extensive workup including an EKG, colonoscopy, EEG, 2-D echo of his heart, reports that he was supposed to follow up with GI as outpatient and has not made that appointment yet. Reports that he was told that he was diagnosed with Hep C and had an EGD which showed gastritis, esophagitis, duodenitis. GI recommended Protonix as well as outpatient follow-up and hepatitis C viral load. Patient reports that for the past 3 days, he has still been feeling very sick and has been vomiting green bile with streaks of blood. He has been taking his Protonix as prescribed, patient reports that he is unable to eat or drink anything at this time. Patient reports persistent pain to the left side of his abdomen. Patient reports that he feels worse than he did when he was admitted, reports that he can't keep anything down at this time. labs reviewed, patient is dehydrated, will give IVF. Patient did have a CAT scan of his abdomen and pelvis during prior to admission, patient reports pain worse than when he was admitted last time, will rescan his abdomen and pelvis. I did tell informed patient of the risks of radiation and cancer development - patient assumes this risk as "this is the worst pain ever." cbc WBC 9.3 Hemoglobin 15.9 Hematocrit 46.0 Platelets 314 BMP Sodium 139 Chloride 104 BUN 8 Creatinine 2.09 Carbon dioxide 28.2 Lactic acid 1.1 AST [address] abdomen pelvis: Negative for acute pathology. Patient reevaluated, vital signs stable, reviewed with patient that symptoms are most likely due to esophagitis, gastritis, and duodenitis. Patient now admits that he was able to eat a cheeseburger yesterday night for dinner, discussed that with his diagnosis from his recent EGD, he should stay away from greasy foods such as cheeseburgers. Patient reports that "I was hungry and it taste good." I reviewed BRAT diet with patient. I reviewed all labs and studies with patient in detail. Understands need to follow up with gi as well as pcp in office. Signs and symptoms of when to return to the emergency room was reviewed with patient in detail. Procedures Procedure Narrative Peripheral line placed under US guidance: 20 gauge IV placed by myself using US guidance to right AC, RN unable to obtain peripheral line Diagnosis Primary Impression: Gastritis and duodenitis Additional Impressions: Abdominal pain Qualified Code: R10.84 - Generalized abdominal pain Dehydration Nausea & vomiting Qualified Code: R11.2 - Nausea and vomiting, intractability of vomiting not specified, unspecified vomiting type Patient Instructions: Diet for Stomach Ulcers and Gastritis (ED), General Instructions, Narcotic given in the ED Additional Instruction: Please follow-up with your utility worker driver as well as your primary care doctor as soon as possible Return to the emergency room if symptoms worsen or progress Please eat a bland diet Med/Other Pt SpecificInfo: Prescription(s) given Scripts Ondansetron Odt (Zofran Odt)4 Mg Tab4 Mg SL Q6HR PRN (Nausea/Vomiting) #30 TAB Ref 0 Prov:Alisha Butler DO 08/07/16 Sucralfate Liq (Carafate Liq)1 Gm/10 Ml Susp1 Gm PO QID #1000 ML Ref 0 on empty stomach Prov:Alisha Butler DO 08/07/16 Disposition: 01 DISCHARGE HOME Condition: Stable Alisha Butler DO Aug 07, 2016 15:29
[2016-08-07] MEDS ORDERED: SUCRALFATE 1 GM/10 ML CUP PO ONE (16:15)
[2016-08-07 16:42] VITALS: BP 123/75; PULSE 70; RESP 16; O2SAT 99
[2016-08-07] MEDS ORDERED: HYDROmorphone HCL PF 1 MG/ML VIAL IV PUSH ONE (16:45)
--- NOTE | 2016-08-07 16:51 | RADRPT ---
EXAM DATE/TIME: 08/07/2016 16:06 [facility] COMPARISON: No previous studies available for comparison. INDICATIONS : Abdominal pain and vomiting. ORAL CONTRAST: No oral contrast ingested. RADIATION DOSE: 9.96 CTDIvol (mGy) MEDICAL HISTORY : Pancreatitis. Hepatitis C. SURGICAL HISTORY : None. ENCOUNTER: Initial ACUITY: 1 day PAIN SCALE: 4/10 LOCATION: Bilateral upper quadrant TECHNIQUE: Volumetric scanning of the abdomen and pelvis was performed. Using automated exposure control and adjustment of the mA and/or kV according to patient size, radiation dose was kept as low as reasonably achievable to obtain optimal diagnostic quality images. FINDINGS: Lung bases are clear. The liver, spleen and pancreas are unremarkable. There are no r enal calcifications identified. There is no ascites or adenopathy. Region of the cecum and terminal ileum are unremarkable. Pelvic contents appear normal. Review of bone windows reveals only degenerative changes. CONCLUSION: 1. Negative CT scan of the abdomen and pelvis. I do not see an etiology for the patient's abdominal pain and vomiting. 2. Lack of oral and intravenous contrast makes detection of subtle abnormalities difficult. Akin Cordoba MD FACR on August 07, 2016 at 16:45 Board Certified Radiologist. This report was verified electronically.
[2016-08-07] MEDS ORDERED: CARA1SUS3 PO (17:16)
[2016-08-07] MEDS ORDERED: ZOFR4TAB3 SL (17:18)
== END 2016-08-07 17:37 | disposition home or self-care (01) ==
LOC: NEPC 12:29
DX: K29.80 Duodenitis without bleeding (principal); K29.70 Gastritis, unspecified, without bleeding; R10.84 Generalized abdominal pain; E86.0 Dehydration; R11.2 Nausea with vomiting, unspecified; F17.210 Nicotine dependence, cigarettes, uncomplicated
CPT/HCPCS: 74176; 80053; 83605; 83690; 85025; 96361; 96374; 96375; 99284; J1170; J7030